=== PATIENT | female | born 2000 | race Asian ===

== ENCOUNTER 2023-08-14 09:53 | Outpatient (REF) | payer OTHER, SELFPAY ==
--- NOTE | ~2023-08-14 | US_ITS ---
EXAMINATION: US RETROPERITONEAL LIMITED (RENAL ONLY) CLINICAL INFORMATION: Flank pain. COMPARISON: None available. TECHNIQUE: Real-time imaging of the kidneys. Limited visualization due to bowel gas. FINDINGS: RIGHT KIDNEY: 9.9 x 3.8 x 4.2 cm (SAG x AP x TRV). No hydronephrosis. No renal calculi. Renal cortical thickness is normal. Limited visualization. LEFT KIDNEY: 9.2 x 5.8 x 5.3 cm (SAG x AP x TRV). No hydronephrosis. No renal calculi. Renal cortical thickness is normal. Limited visualization. BLADDER: Bladder is decompressed. US/US renal BI IMPRESSION: 1. No hydronephrosis. No renal calculi. Renal cortical thickness is normal. Limited visualization. 2. Bladder is decompressed and could not be evaluated.
== END 2023-08-14 09:54 | disposition home or self-care (01) ==
LOC: HO.UMASIMG 09:53
PROVIDERS: Visit Provider Family Medicine
DX: R30.0 Dysuria (principal)
CPT/HCPCS: 76775

== ENCOUNTER 2023-08-28 08:21 | Outpatient (REF) | payer OTHER, SELFPAY | END 2023-08-28 08:22 | disposition home or self-care (01) | LOC: HO.UMASIMG 08:21 | PROVIDERS: Visit Provider Family Medicine | DX: Z13.89 Encounter for screening for other disorder (principal) ==

== ENCOUNTER 2023-09-04 09:54 | Outpatient (REF) | payer OTHER, SELFPAY ==
--- NOTE | ~2023-09-04 | US_ITS ---
EXAMINATION: US PELVIS LIMITED (BLADDER) CLINICAL INFORMATION: History of UTI. COMPARISON: None available. TECHNIQUE: Real-time imaging of the bladder. FINDINGS: BLADDER: Well distended and normal. Bilateral ureteral jets are demonstrated. Prevoid bladder volume is 228 mL. Postvoid bladder volume is 18 mL. US/US bladder IMPRESSION: Unremarkable sonographic imaging of the bladder.
--- NOTE | ~2023-09-04 | US_ITS ---
EXAM: Pelvic Ultrasound CLINICAL INDICATION: History of elevated testosterone. Low back pain. Rule out PCOS. COMPARISON: None available TECHNIQUE: The pelvis was evaluated using transabdominal and transvaginal imaging. FINDINGS: The uterus measures 5.7 x 2.5 x 5.1 cm in longitudinal by AP by transverse dimension. The endometrial stripe is not thickened and measures 0.4 cm. The left ovary measures approximately 1.4 x 2.1 x 1.6 cm and is normal. The right ovary measures approximately 3.4 x 1.8 x 2.1 cm and is also normal. There are no abnormal adnexal masses. There is no free fluid in the pelvis. US/US pelvic and transvaginal IMPRESSION: Unremarkable sonographic imaging of the pelvis.
== END 2023-09-04 09:55 | disposition home or self-care (01) ==
LOC: HO.UMASIMG 09:54
PROVIDERS: Visit Provider Family Medicine
DX: R10.2 Pelvic and perineal pain (principal); R10.9 Unspecified abdominal pain
CPT/HCPCS: 76830; 76856; 76857

== ENCOUNTER 2024-09-09 15:56 | Outpatient (REF) | payer OTHER, SELFPAY ==
--- NOTE | ~2024-09-09 | US_ITS ---
CLINICAL HISTORY: LEFT CALF PAIN, R O DVT Venous duplex ultrasound left lower extremity COMPARISON: None FINDINGS: The visualized deep veins are fully compressible with normal Doppler color flow and spectral tracings. No popliteal cyst. IMPRESSION: 1. Negative for left lower extremity deep vein thrombosis. This document has been electronically signed by: Don Rosales MD on 09/09/2024 16:42:46
== END 2024-09-09 15:57 | disposition home or self-care (01) ==
LOC: HO.UMASIMG 15:56
PROVIDERS: Visit Provider Internal Medicine
DX: M79.662 Pain in left lower leg (principal)
CPT/HCPCS: 93971

== ENCOUNTER → 2024-09-09 16:00 | Outpatient (BNV) | payer OTHER, SELFPAY | PROVIDERS: Visit Provider Radiology Diagnostic Radiology | DX: M79.605 Pain in left leg (principal) | CPT/HCPCS: 93971 ==